=== PATIENT | male | born 1955 | race Caucasian/White ===

== ENCOUNTER → 2018-01-09 | Day surgery (SDC) | payer OTHER ==
[~2018-01-09] MED LIST: ATORVASTATIN CA20 MG PO; FENTANYL CITRATE/PF 100MCG/2 ML INJ ONE; MIDAZOLAM HCL 2 MG/2 ML VIAL ONE; OR PHACO EYE KIT ONE; PANTOPRAZOLE SO40 MG PO; PREOP PHACO EYE KIT ONE
== END | disposition home or self-care (01) ==
LOC: OR 13:25
PROVIDERS: ATTEND Ophthalmology
DX: H25.12 Age-related nuclear cataract, left eye (principal); E78.5 Hyperlipidemia, unspecified; K21.9 Gastro-esophageal reflux disease without esophagitis
CPT/HCPCS: 66984; J2250

== ENCOUNTER → 2018-02-06 | Day surgery (SDC) | payer OTHER | END | disposition home or self-care (01) | LOC: OR 10:55 | PROVIDERS: ATTEND Ophthalmology | DX: H25.11 Age-related nuclear cataract, right eye (principal); K21.9 Gastro-esophageal reflux disease without esophagitis | CPT/HCPCS: 66984; J2250; V2632 ==